=== PATIENT | female | born 1970 | race Caucasian/White ===

== ENCOUNTER 2017-03-14 20:17 | Emergency (ER) | payer MEDICAID, MEDICARE ==
--- NOTE | 2017-03-14 20:27 | EDM.PDOC ---
ED HPI GENERAL MEDICAL PROBLEM - General Stated Complaint: CHEST PAIN, SOB Time Seen by Provider: 03/14/17 20:27 Source of Information: Reports: Patient History Limitations: Reports: No Limitations - History of Present Illness INITIAL COMMENTS - FREE TEXT/NARRATIVE: 46 yo F who presents to the ER with Chest pain that has been ongoing for the past 2 months. Reports that Chest pain has been episodic with no obvious aggravating or relieving factore. Has occasionaL sob. No fever, chills, diaphoresis or Leg swelling. Presented to the ER at the insistence of her significant other Duration: Chronic - Related Data Allergies Allergy/AdvReac Type Severity Reaction Status Date / Time prednisone Allergy Other Verified 03/14/17 21:46 Home Meds: Home Meds clonazePAM [Clonazepam] 2 mg PO BID 09/12/15 [History] QUEtiapine Fumarate [Seroquel Xr] 300 mg PO DAILY 03/14/17 [History] Past Medical History Cardiovascular History: Reports: High Cholesterol, Hypertension, SOB on Exertion Musculoskeletal History: Reports: Back Pain, Chronic Psychiatric History: Reports: ADD, ADHD, Anxiety, Bipolar, Depression, Psych Hospitalization(s), Suicide Attempt Social & Family History - Tobacco Use Smoking Status *Q: Current Every Day Smoker Years of Tobacco use: 15 Packs/Tins Daily: 0.6 Second Hand Smoke Exposure: Yes - Recreational Drug Use Recreational Drug Use: No - Living Situation & Occupation Living situation: Reports: Other ED ROS GENERAL - Review of Systems Review Of Systems: See Below Constitutional: Reports: No Symptoms HEENT: Reports: No Symptoms Respiratory: Reports: No Symptoms Cardiovascular: Reports: Chest Pain Endocrine: Reports: No Symptoms GI/Abdominal: Reports: No Symptoms : Reports: No Symptoms Musculoskeletal: Reports: No Symptoms Skin: Reports: No Symptoms Neurological: Reports: No Symptoms Psychiatric: Reports: No Symptoms Hematologic/Lymphatic: Reports: No Symptoms Immunologic: Reports: No Symptoms ED EXAM, GENERAL - Physical Exam Exam: See Below Exam Limited By: No Limitations General Appearance: Alert, WD/WN Ears: Normal External Exam, Normal Canal, Normal TMs Nose: Normal Inspection, Normal Mucosa, No Blood Throat/Mouth: Normal Inspection, Normal Lips, Normal Teeth, Normal Oropharynx, Normal Voice Head: Atraumatic, Normocephalic Neck: Normal Inspection Respiratory/Chest: No Respiratory Distress, Lungs Clear Cardiovascular: Normal Peripheral Pulses, Regular Rate, Rhythm, No JVD, No Murmur GI/Abdominal: Normal Bowel Sounds, Non-Tender, No Distention, No Abnormal Bruit (Female) Exam: Deferred Rectal (Female) Exam: Deferred Back Exam: Normal Inspection, Full Range of Motion Extremities: Normal Inspection, Normal Range of Motion, Non-Tender Neurological: Alert, Oriented, CN II-XII Intact, Normal Cognition Psychiatric: Normal Affect, Normal Mood Skin Exam: Warm Lymphatic: No Adenopathy Course - Vital Signs Last Recorded V/S: Last Vital Signs Temp 36.6 C 03/14/17 20:20 Pulse 103 H 03/14/17 20:20 Resp 16 03/14/17 20:20 BP 131/88 03/14/17 20:20 Pulse Ox 98 03/14/17 20:20 - Orders/Labs/Meds Orders: Active Orders 24 hr Category Date Time Status CXR [Chest 2V] [CR] Stat Exams 03/14/17 20:42 Taken Sodium Chloride 0.9% [Normal Saline] 1,000 ml Med 03/14/17 20:45 Active IV ASDIRECTED Medication Orders Sodium Chloride (Normal Saline) 1,000 mls @ 100 mls/hr IV ASDIRECTED ANDREA Last Admin: 03/14/17 21:08 Dose: 100 mls/hr Labs: Laboratory Tests 03/14/17 03/14/17 03/14/17 Range/Units 20:55 20:55 20:55 WBC 12.6 H (4.5-12.0) X10-3/uL RBC 4.53 (3.23-5.20) x10(6)uL Hgb 13.7 (11.5-15.5) g/dL Hct 40.1 (30.0-51.3) % MCV 88.7 (80-96) fL MCH 30.2 (27.7-33.6) pg MCHC 34.0 (32.2-35.4) g/dL RDW 12.9 (11.5-15.5) % Plt Count 388 H (125-369) X10(3)uL MPV 7.7 (7.4-10.4) fL Neut % (Auto) 57.3 (46-82) % Lymph % (Auto) 32.5 (13-37) % [place] % (Auto) 6.5 (4-12) % Eos % (Auto) 2 (1.0-5.0) % Baso % (Auto) 2 (0-2) % Neut # (Auto) 7.2 (1.6-8.3) # Lymph # (Auto) 4.1 (0.6-5.0) # [place] # (Auto) 0.8 (0.0-1.3) # Eos # (Auto) 0.3 (0.0-0.8) # Baso # (Auto) 0.2 (0.0-0.2) # Sodium 131 L (135-145) mmol/L Potassium 3.8 (3.5-5.3) mmol/L Chloride 99 L D (100-110) mmol/L Carbon Dioxide 24 (23-29) mmol/L BUN 12 (5-20) mg/dL Creatinine 0.6 (0.6-1.3) mg/dL Est Cr Clr Drug Dosing TNP Estimated GFR (MDRD) > 60 (>60) BUN/Creatinine Ratio 20.0 (9-20) Glucose 104 (80-116) mg/dL Calcium 9.0 (8.6-10.2) mg/dL Total Bilirubin 0.4 (0.1-1.3) mg/dL AST 18 D (5-27) IU/L ALT 20 D (14-26) IU/L Alkaline Phosphatase 87 (56-112) IU/L Troponin I < 0.01 L (0.02-0.06) NG/ML Total Protein 7.6 (6.0-8.0) g/dL Albumin 3.4 L (3.5-5.2) g/dL Globulin 4.2 g/dL Albumin/Globulin Ratio 0.8 Meds: Medications Generic Name Dose Route Start Last Admin Trade Name Freq PRN Reason Stop Dose Admin Sodium Chloride 1,000 mls @ 100 mls/hr 03/14/17 20:45 03/14/17 21:08 Normal Saline IV 100 mls/hr ASDIRECTED ANDREA Administration Discontinued Medications Generic Name Dose Route Start Last Admin Trade Name Freq PRN Reason Stop Dose Admin Aspirin 324 mg 03/14/17 20:44 03/14/17 20:50 Aspirin PO 03/14/17 20:45 324 mg ONETIME ONE Administration Departure - Departure Time of Disposition: 00:00 Disposition: Home, Self-Care 01 Condition: Good Clinical Impression: Atypical chest pain - Discharge Information Instructions: Costochondritis, [id number], Nonspecific Chest Pain Referrals: PCP,None [Primary Care Provider] - Forms: ED Department Discharge Additional Instructions: Follow with PCP Return if symptoms worsen Call your Physician or Return to Emergency Department if: * Your condition worsens in any way. * You develop fever greater than 100.4. * You have vomitting that does not stop with medications. * You have pain that is not controlled with medications. - My Orders Last 24 Hours: My Active Orders 03/14/17 20:42 CXR [Chest 2V] [CR] Stat 03/14/17 20:45 Sodium Chloride 0.9% [Normal Saline] 1,000 ml IV ASDIRECTED - Assessment/Plan Last 24 Hours: My Active Orders 03/14/17 20:42 CXR [Chest 2V] [CR] Stat 03/14/17 20:45 Sodium Chloride 0.9% [Normal Saline] 1,000 ml IV ASDIRECTED
[2017-03-14] MEDS ORDERED: Aspirin 81 MG Tab.Chew PO ONE (20:44)
[2017-03-14] MEDS ORDERED: Sodium Chloride 0.9% 1,000 ML IV SCH (20:45)
[2017-03-14 22:11] VITALS: BP 131/88
--- NOTE | 2017-03-16 13:52 | CR ---
INDICATION: Chest pain. COMPARISON: None. PA AND LATERAL CHEST: Mild perihilar, bibasilar segmental atelectasis, and/or parenchymal scarring change with minimal volume loss. No cardiomegaly, interstitial edema, pneumothorax. Minimal left pleural effusion. Osseous elements otherwise unremarkable. IMPRESSION: 1. Mild perihilar, bibasilar segmental atelectasis, and/or parenchymal scarring change. 2. Minimal left pleural effusion. MTDD
== END 2017-03-14 23:50 | disposition home or self-care (01) ==
LOC: FB.ED 20:17
DX: R07.89 Other chest pain (principal); E78.00 Pure hypercholesterolemia, unspecified; I10 Essential (primary) hypertension; F31.9 Bipolar disorder, unspecified; F41.9 Anxiety disorder, unspecified; F17.210 Nicotine dependence, cigarettes, uncomplicated; Z79.899 Other long term (current) drug therapy
CPT/HCPCS: 36415; 71020; 80053; 84484; 85025; 96360; 96361; 99285; A9270; J7040; 99283

== ENCOUNTER 2017-12-28 17:47 | Emergency (ER) | payer MEDICARE ==
[2017-12-28] MEDS ORDERED: Aspirin 81 MG Tab.Chew PO ONE (17:57)
--- NOTE | 2017-12-28 18:01 | EDM.PDOC ---
ED HPI GENERAL MEDICAL PROBLEM - General Stated Complaint: CHEST PAIN Time Seen by Provider: 12/28/17 17:47 Source of Information: Reports: Patient, Family History Limitations: Reports: No Limitations - History of Present Illness INITIAL COMMENTS - FREE TEXT/NARRATIVE: 47 y.o.w.f came to the ed by PC due to acute SSCP while walking, Pain was rated 10/10, no N/V/D no dizziness, no diaphoresis. No other acute med issues, denies cardiac riskfactors. BP 159/88 pulse 77 RR 18 Pulse ox 100 Temp 36.8 Onset: Today Onset Date: 12/28/17 Onset Time: 17:00 Duration: Minutes:, Intermittent, Improving Location: Reports: Chest Quality: Reports: Ache, Burning Severity: Moderate Improves with: Reports: Rest Worsens with: Reports: Movement Context: Reports: Other Associated Symptoms: Reports: Chest Pain mid chest Pain Score (Numeric/FACES): 2 - Related Data Allergies Allergy/AdvReac Type Severity Reaction Status Date / Time prednisone Allergy Other Verified 12/28/17 18:02 Home Meds: Home Meds NK [No Known Home Meds] 12/28/17 [History] Past Medical History Cardiovascular History: Reports: High Cholesterol, Hypertension, SOB on Exertion [employer] History: Reports: Musculoskeletal History: Reports: Back Pain, Chronic Psychiatric History: Reports: ADD, ADHD, Anxiety, Bipolar, Depression, Psych Hospitalization(s), Suicide Attempt - Past Surgical History GI Surgical History: Reports: Cholecystectomy Social & Family History - Family History Family Medical History: Noncontributory - Tobacco Use Smoking Status *Q: Current Every Day Smoker Years of Tobacco use: 15 Packs/Tins Daily: 0.6 Second Hand Smoke Exposure: Yes - Caffeine Use Caffeine Use: Reports: Soda - Recreational Drug Use Recreational Drug Use: No - Living Situation & Occupation Living situation: Reports: Other ED ROS GENERAL - Review of Systems Review Of Systems: See Below Constitutional: Reports: No Symptoms HEENT: Reports: No Symptoms Respiratory: Reports: No Symptoms Cardiovascular: Reports: Chest Pain Endocrine: Reports: No Symptoms GI/Abdominal: Reports: No Symptoms : Reports: No Symptoms Musculoskeletal: Reports: No Symptoms Skin: Reports: No Symptoms Neurological: Reports: No Symptoms Psychiatric: Reports: No Symptoms Hematologic/Lymphatic: Reports: No Symptoms Immunologic: Reports: No Symptoms ED EXAM, GENERAL - Physical Exam Exam: See Below Exam Limited By: No Limitations General Appearance: Alert, WD/WN, Mild Distress Eye Exam: Bilateral Eye: Normal Inspection Ears: Normal External Exam Ear Exam: Bilateral Ear: Auricle Normal Nose: Normal Inspection Throat/Mouth: Normal Inspection Head: Atraumatic, Normocephalic Neck: Normal Inspection, Supple, Non-Tender, Full Range of Motion Respiratory/Chest: No Respiratory Distress, Lungs Clear, Normal Breath Sounds, No Accessory Muscle Use, Chest Non-Tender Cardiovascular: Normal Peripheral Pulses, Regular Rate, Rhythm, No Edema, No Gallop, No JVD, No Murmur Peripheral Pulses: 1+: Radial (L) GI/Abdominal: Normal Bowel Sounds, Soft, Non-Tender, No Organomegaly, No Distention (Female) Exam: Deferred Rectal (Female) Exam: Deferred Back Exam: Normal Inspection, Full Range of Motion Extremities: Normal Inspection, Normal Range of Motion, Non-Tender, No Pedal Edema, Normal Capillary Refill Neurological: Alert, Oriented, CN II-XII Intact, Normal Cognition, Normal Gait, No Motor/Sensory Deficits Psychiatric: Normal Affect, Normal Mood Skin Exam: Warm, Dry, Intact, Normal Color, No Rash Lymphatic: No Adenopathy EKG INTERPRETATION EKG Date: 12/28/17 Time: 17:55 Rhythm: NSR Rate (Beats/Min): 72 [place]: Normal P-Wave: Present QRS: Normal ST-T: Normal QT: Normal Comparison: NA - No Prior EKG Course - Vital Signs Text/Narrative:: 47 y.o.w.f came to the ed by PC due to acute SSCP while walking, Pain was rated 10/10, no N/V/D no dizziness, no diaphoresis. No other acute med issues, denies cardiac riskfactors. BP 159/88 pulse 77 RR 18 Pulse ox 100 Temp 36.8 PE;: WNWD W F came by PC to the ed due to mid upper ant chest pain, subsiding. Imaging: CXR NAD Labs: CBC nl K 3.0 Troponin 0.017 Impression: Hypokalemia, Atypicla chest pain Tx: Potassium, ASA. Reexam: Pain subsided 100% Plan: D/C with instructions Last Recorded V/S: Last Vital Signs Temp 36.4 C 12/28/17 19:07 Pulse 69 12/28/17 19:07 Resp 18 12/28/17 19:07 BP 137/96 H 12/28/17 19:07 Pulse Ox 99 12/28/17 19:07 - Orders/Labs/Meds Orders: Active Orders 24 hr Category Date Time Status EKG Documentation Completion [RC] ASDIRECTED Care 12/28/17 17:59 Active CXR [Chest 1V Frontal] [CR] Stat Exams 12/28/17 17:57 Taken EKG 12 Lead [EK] Routine Ther 12/28/17 17:57 Ordered Labs: Laboratory Tests 12/28/17 12/28/17 12/28/17 Range/Units 18:10 18:10 18:10 WBC 10.2 (4.5-12.0) X10-3/uL RBC 4.59 (3.23-5.20) x10(6)uL Hgb 13.8 (11.5-15.5) g/dL Hct 40.4 (30.0-51.3) % MCV 87.9 (80-96) fL MCH 30.0 (27.7-33.6) pg MCHC 34.1 (32.2-35.4) g/dL RDW 12.8 (11.5-15.5) % Plt Count 393 H (125-369) X10(3)uL MPV 8.8 (7.4-10.4) fL Neut % (Auto) 51.0 (46-82) % Lymph % (Auto) 39.4 H (13-37) % [place] % (Auto) 5.4 (4-12) % Eos % (Auto) 2 (1.0-5.0) % Baso % (Auto) 2 (0-2) % Neut # (Auto) 5.2 (1.6-8.3) # Lymph # (Auto) 4.0 (0.6-5.0) # [place] # (Auto) 0.6 (0.0-1.3) # Eos # (Auto) 0.2 (0.0-0.8) # Baso # (Auto) 0.2 (0.0-0.2) # PT 10.2 (8.7-11.1) INR 1.01 (0.89-1.13) D-Dimer, Quantitative (100-400) ng/mL Sodium 140 (135-145) mmol/L Potassium 3.0 L (3.5-5.3) mmol/L Chloride 104 (100-110) mmol/L Carbon Dioxide 25 (21-32) mmol/L BUN 6 L (7-18) mg/dL Creatinine 0.8 (0.55-1.02) mg/dL Est Cr Clr Drug Dosing TNP Estimated GFR (MDRD) > 60 (>60) BUN/Creatinine Ratio 7.5 L (9-20) Glucose 97 (80-116) mg/dL Calcium 9.0 (8.6-10.2) mg/dL Troponin I (<0.017-0.056) ng/mL 12/28/17 12/28/17 Range/Units 18:10 18:10 WBC (4.5-12.0) X10-3/uL RBC (3.23-5.20) x10(6)uL Hgb (11.5-15.5) g/dL Hct (30.0-51.3) % MCV (80-96) fL MCH (27.7-33.6) pg MCHC (32.2-35.4) g/dL RDW (11.5-15.5) % Plt Count (125-369) X10(3)uL MPV (7.4-10.4) fL Neut % (Auto) (46-82) % Lymph % (Auto) (13-37) % [place] % (Auto) (4-12) % Eos % (Auto) (1.0-5.0) % Baso % (Auto) (0-2) % Neut # (Auto) (1.6-8.3) # Lymph # (Auto) (0.6-5.0) # [place] # (Auto) (0.0-1.3) # Eos # (Auto) (0.0-0.8) # Baso # (Auto) (0.0-0.2) # PT (8.7-11.1) INR (0.89-1.13) D-Dimer, Quantitative < 100 L (100-400) ng/mL Sodium (135-145) mmol/L Potassium (3.5-5.3) mmol/L Chloride (100-110) mmol/L Carbon Dioxide (21-32) mmol/L BUN (7-18) mg/dL Creatinine (0.55-1.02) mg/dL Est Cr Clr Drug Dosing Estimated GFR (MDRD) (>60) BUN/Creatinine Ratio (9-20) Glucose (80-116) mg/dL Calcium (8.6-10.2) mg/dL Troponin I < 0.017 L (<0.017-0.056) ng/mL Meds: Medications Discontinued Medications Generic Name Dose Route Start Last Admin Trade Name Rosa Maria PRN Reason Stop Dose Admin Aspirin 324 mg 12/28/17 17:57 12/28/17 18:16 Aspirin PO 12/28/17 17:58 324 mg ONETIME ONE Administration Potassium Chloride 40 meq 12/28/17 19:10 12/28/17 19:22 Klor-Con M20 PO 12/28/17 19:11 40 meq ONETIME ONE Administration Potassium Chloride 40 meq 12/28/17 19:13 Klor-Con M20 PO 12/28/17 19:14 ONETIME ONE Departure - Departure Time of Disposition: 18:59 Disposition: Home, Self-Care 01 Condition: Good (atypical ) Clinical Impression: Atypical chest pain, Hypokalemia Instructions: Nonspecific Chest Pain, [id number] Referrals: PCP,None [Primary Care Provider] - Forms: ED Department Discharge Additional Instructions: Please follow up with your doctor, please come back if your symptom come back. Care Plan Goals: Please take potassium 40 MQ at 11 pm tonight. Please follow with your PMD, please check your potasium in 3 days, please come back if your symptoms get worse acutely - My Orders Last 24 Hours: My Active Orders 12/28/17 17:57 CXR [Chest 1V Frontal] [CR] Stat EKG 12 Lead [EK] Routine 12/28/17 17:59 EKG Documentation Completion [RC] ASDIRECTED - Assessment/Plan Last 24 Hours: My Active Orders 12/28/17 17:57 CXR [Chest 1V Frontal] [CR] Stat EKG 12 Lead [EK] Routine 12/28/17 17:59 EKG Documentation Completion [RC] ASDIRECTED
[2017-12-28 19:07] VITALS: BP 137/96
[2017-12-28] MEDS ORDERED: Potassium Chloride 20 MEQ Tab.ER PO ONE ×2 (19:10→19:13)
--- NOTE | 2017-12-29 11:52 | CR ---
INDICATION: Chest pain. CHEST: AP upright portable view of the chest, 12/28/2017, was compared with , revealing overlying EKG leads. The heart is likely normal in size, emphasized by the AP positioning. Minimal calcification is suggested in the arch of the aorta, but is not definite. A definite active infiltrate or effusion was not identified. IMPRESSION: No acute process. MTDD
== END 2017-12-28 19:30 | disposition home or self-care (01) ==
LOC: FB.ED 17:47
DX: R07.89 Other chest pain (principal); E87.6 Hypokalemia; F17.210 Nicotine dependence, cigarettes, uncomplicated; I10 Essential (primary) hypertension; E78.00 Pure hypercholesterolemia, unspecified; Z88.8 Allergy status to other drugs, medicaments and biological substances
CPT/HCPCS: 36415; 71045; 80048; 84484; 85025; 85379; 85610; 93005; 99285; A9270

== ENCOUNTER 2018-01-31 17:25 | Emergency (ER) | payer MEDICARE, MEDICAID ==
[2018-01-31 18:45] VITALS: BP 129/77
--- NOTE | 2018-02-01 12:19 | ER ---
DATE SEEN: 01/31/2018 TIME SEEN: The patient was seen at 1804 hours. HISTORY OF PRESENT ILLNESS: Right ingrown toenail history with increasing pain with walking. She acknowledges she has cut her toenails at their corners and rounded them. She denies fever, cough, sore throat, respiratory symptoms, toe injury, or trauma. 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 ALLERGIES: Prednisone and naproxen. PHYSICAL EXAMINATION: VITAL SIGNS: Blood pressure 135/80, heart rate 87 and sinus, respirations 16, oxygen saturation 99%, 79.3 kg. EXTREMITIES: Examination of right lateral toe demonstrates hallux incarnatus - ingrown toenail on the right. It has a rounded edge. Mild erythema at the lateral portion of the toe, approximately 50% of the corner of the toe. Moderate tenderness to pressure. I did not do any cutting or trimming, but I chose to remove this exophytic hypertrophic skin that is piled up at this point of the incarnatus granuloma that has been established from constant irritation. This then had small amount of bleeding, that is treated with silver nitrate. 50% of this large exophytic mass was removed. Ideally should the whole mass should be removed. However, the patient chose to not do this presently and would like to be treated conservatively with a trial of silver nitrate applications intermittently after successive paring off this hypertrophic dermis. She plans to cut her toenails horizontally and will not be cutting her hallux toenails for 2 months except for angel other toe nails. ASSESSMENT: Incarnatus unguis. The patient was given a prescription of Keflex 500 mg t.i.d., 21 tablets (7 days). Follow up with doctor as needed in the next 7 to 14 days. /[id number] AMA/VANNESSA ORTIZ
== END 2018-01-31 18:44 | disposition home or self-care (01) ==
LOC: FB.ED 17:25
DX: L60.0 Ingrowing nail (principal)
CPT/HCPCS: 99283

== ENCOUNTER 2018-03-03 12:48 | Emergency (ER) | payer MEDICARE, MEDICAID ==
[2018-03-03] MEDS ORDERED: Ondansetron 4 MG/2 ML SDV IVPUSH ONE (13:16)
[2018-03-03] MEDS ORDERED: Sodium Chloride 0.9% 1,000 ML IV SCH (13:30)
--- NOTE | 2018-03-03 15:26 | ER ---
DATE SEEN: 03/03/2018 REASON FOR VISIT: Headache. HISTORY OF PRESENT ILLNESS: This is a 47-year-old with headache, pain behind the eyes, nausea, vomiting, and just feeling unwell. These symptoms started this morning. She denies fever. PAST MEDICAL HISTORY: She is healthy without any active medical problems. She is, however, currently on treatment for a toe infection with Bactrim. ALLERGIES: Naproxen and prednisone. REVIEW OF SYSTEMS: Denies any chest pain or shortness of breath. PHYSICAL EXAMINATION: GENERAL: Mildly toxic in appearance. VITAL SIGNS: Temperature 97.5, pulse is 80. EARS, NOSE, AND THROAT: Negative. EYES: Pupils are equal, react to light. NECK: Supple. CARDIOVASCULAR: Normal. RESPIRATIONS: Clear. LABORATORY DATA: White cell count 17,000. Electrolytes are normal with the exception of BUN of 20. EKG and CT of the head were all unremarkable. IMPRESSION: Fatigue and dehydration. PLAN: Treatment, supportive, fluids, rest. I gave her 1 L of normal saline, Zofran, and discharged home for followup in 24 to 48 hours. /[id number] HUMERA/MARIANAL
[2018-03-03 17:31] VITALS: BP 130/70
== END 2018-03-03 14:48 | disposition home or self-care (01) ==
LOC: FB.ED 12:48
DX: E86.0 Dehydration (principal); R53.83 Other fatigue; Z88.8 Allergy status to other drugs, medicaments and biological substances
CPT/HCPCS: 36415; 70450; 80048; 82550; 84484; 85025; 93005; 96361; 96374; 99284; J2405; J7030

== ENCOUNTER 2020-01-28 14:57 | Emergency (ER) | payer MEDICAID, MEDICARE, OTHER ==
--- NOTE | 2020-01-28 15:13 | EDM.PDOC ---
ED HPI GENERAL MEDICAL PROBLEM - General Stated Complaint: CHEST PAIN Time Seen by Provider: 01/28/20 15:08 Source of Information: Reports: Patient History Limitations: Reports: No Limitations - History of Present Illness INITIAL COMMENTS - FREE TEXT/NARRATIVE: 49-year-old female who reports at approximately 11 AM today she developed upper quadrant abdominal pain and it seemed to radiate through to her back. It was a sharp type pain, "like somebody was stepping on me". She had just moved from furniture and also she reports that at approximately 10 AM today she smoked some methamphetamine. She reports that it was the first time she had done this. She states that she laid down and the pain seemed to go away and she reports that she went to sleep and awoke at 2 PM with recurrence of the pain and it has increased to a 10/10 and is of the pain quality with radiation through to her back. She has had no nausea or vomiting with this pain. The pain is worse with palpation and with deep breath. No chest pain associated with this. No cough. No shortness of breath. No nasal congestion. No sore throat. No trouble swallowing. She states that she felt completely well prior to this occurring and she has not had pain like this in the past. There are no other associated signs or symptoms. There are no other modifying factors. Onset: Today (11 AM) Duration: Getting Worse Location: Reports: Abdomen, Back Quality: Reports: Sharp Severity: Severe Improves with: Reports: Rest Worsens with: Reports: Breathing, Other (Palpation) Context: Reports: Other (As above) Associated Symptoms: Reports: No Other Symptoms Treatments [employer]LECT[employer]ICAL [employer]STRUMENTATION [employer]PERVISOR: Reports: Other (see below) (Nothing) Epigastric region radiating into lower back Pain Score (Numeric/FACES): 10 - Related Data Allergies Allergy/AdvReac Type Severity Reaction Status Date / Time prednisone Allergy Other Verified 03/03/18 13:09 trazodone Allergy Cannot Verified 01/28/20 17:41 Remember naproxeb Allergy Other Uncoded 03/03/18 13:09 Home Meds: Home Meds NK [No Known Home Meds] 01/28/20 [History] Past Medical History Cardiovascular History: Reports: High Cholesterol, Hypertension, Other (See Below) (Peripheral vascular disease) Musculoskeletal History: Reports: Back Pain, Chronic Psychiatric History: Reports: ADD, ADHD, Anxiety, Bipolar, Depression, Psych Hospitalization(s), Suicide Attempt - Past Surgical History Cardiovascular Surgical History: Reports: Percutaneous Transluminal Angioplasty (Of her left lower extremity 3.) GI Surgical History: Reports: Cholecystectomy Female Surgical History: Reports: Hysterectomy Musculoskeletal Surgical History: Reports: Carpal Tunnel (Bilateral) Social & Family History - Tobacco Use Smoking Status *Q: Current Every Day Smoker - Caffeine Use Caffeine Use: Reports: Soda - Alcohol Use Alcohol Use History: Yes Alcohol Use Frequency: Rarely - Recreational Drug Use Recreational Drug Use: Yes Recreational Drug Type: Reports: Methamphetamine (Used at 10 AM today, smoked.) ED ROS GENERAL - Review of Systems Review Of Systems: See Below Constitutional: Reports: No Symptoms HEENT: Reports: No Symptoms Respiratory: Reports: No Symptoms Cardiovascular: Reports: No Symptoms GI/Abdominal: Reports: Abdominal Pain, Other (Normal bowel movements). Denies: Nausea, Vomiting : Reports: No Symptoms Musculoskeletal: Reports: Back Pain Skin: Reports: No Symptoms Neurological: Reports: No Symptoms Psychiatric: Reports: Anxiety Hematologic/Lymphatic: Reports: No Symptoms (She has been on Plavix in the past after the left lower extremity angioplasty but is no longer on Plavix.) Immunologic: Reports: No Symptoms ED EXAM, GENERAL - Physical Exam Exam: See Below Exam Limited By: No Limitations General Appearance: Alert, WD/WN, Moderate Distress Eye Exam: Bilateral Eye: EOMI, Normal Inspection (Sclera are anicteric), PERRL Ears: Normal External Exam, Hearing Grossly Normal Ear Exam: Bilateral Ear: Auricle Normal Nose: Normal Inspection, Normal Mucosa, No Blood Throat/Mouth: Normal Inspection, Normal Oropharynx, Normal Voice, No Airway Compromise Head: Atraumatic, Normocephalic Neck: Normal Inspection, Supple, Non-Tender, Full Range of Motion Respiratory/Chest: No Respiratory Distress, Lungs Clear, Normal Breath Sounds, No Accessory Muscle Use, Chest Non-Tender Cardiovascular: Normal Peripheral Pulses, Regular Rate, Rhythm, No Murmur Peripheral Pulses: 2+: Radial (L), Radial (R), Dorsalis Pedis (L), Dorsalis Pedis (R) GI/Abdominal: Normal Bowel Sounds, Soft, No Mass, Guarding, Tender (in entire upper abdomen), Other (Nontender elsewhere in the abdomen.) Back Exam: Normal Inspection, Full Range of Motion. No: CVA Tenderness (R), CVA Tenderness (L) Extremities: Normal Inspection, Normal Range of Motion, Non-Tender, No Pedal Edema, Normal Capillary Refill Neurological: Alert, Oriented, CN II-XII Intact, Normal Cognition, No Motor/ Sensory Deficits Psychiatric: Anxious Skin Exam: Warm, Dry, Intact, Normal Color, No Rash EKG INTERPRETATION EKG Date: 01/28/20 Time: 15:05 Rhythm: NSR Rate (Beats/Min): 82 [place]: Normal P-Wave: Present QRS: Normal ST-T: Normal QT: Prolonged (Slightly prolonged QTc.) Comparison: Other: (Slightly prolonged QTC is new from an EKG that was performed on 03/03/2018. Really no change from that EKG.) Course - Vital Signs Last Recorded V/S: Last Vital Signs Temp 35.8 C L 01/28/20 18:30 Pulse 76 01/28/20 19:00 Resp 21 H 01/28/20 19:00 BP 157/89 H 01/28/20 19:00 Pulse Ox 99 01/28/20 19:00 - Orders/Labs/Meds Orders: Active Orders 24 hr Category Date Time Status EKG Documentation Completion [RC] ASDIRECTED Care 01/28/20 15:25 Active Abdomen Pelvis w Cont [CT] Stat Exams 01/28/20 16:26 Taken Chest 1V Frontal [CR] Stat Exams 01/28/20 15:23 Taken Heparin Sodium/0.45% NaCl [Heparin 25,000 Units in 1/2 Med 01/28/20 18:15 Active NS 500 ML] 500 ml IV ASDIRECTED Sodium Chloride 0.9% [Normal Saline] 1,000 ml Med 01/28/20 15:30 Active IV ASDIRECTED Sodium Chloride 0.9% [Normal Saline] 1,000 ml Med 01/28/20 18:45 Active IV ASDIRECTED Sodium Chloride 0.9% [Saline Flush] Med 01/28/20 15:23 Active 10 ml FLUSH ASDIRECTED PRN Peripheral IV Insertion Adult [OM.PC] Routine Oth 01/28/20 15:23 Ordered EKG 12 Lead [EK] Routine Ther 01/28/20 15:23 Ordered Medication Orders Sodium Chloride (Normal Saline) 1,000 mls @ 999 mls/hr IV ASDIRECTED ANDREA Last Admin: 01/28/20 15:30 Dose: 999 mls/hr Heparin Sodium/Sodium Chloride (Heparin 25,000 Units In 1/2 Ns 500 Ml) 500 mls @ 24 mls/hr IV ASDIRECTED ANDREA Last Admin: 01/28/20 18:27 Dose: 24 mls/hr Sodium Chloride (Normal Saline) 1,000 mls @ 125 mls/hr IV ASDIRECTED ANDREA Last Admin: 01/28/20 20:00 Dose: 125 mls/hr Sodium Chloride (Saline Flush) 10 ml FLUSH ASDIRECTED PRN PRN Reason: Keep Vein Open Labs: Laboratory Tests 01/28/20 01/28/20 01/28/20 Range/Units 15:10 15:10 15:10 WBC 12.4 H (4.5-12.0) X10-3/uL RBC 4.97 (3.23-5.20) x10(6)uL Hgb 14.3 (11.5-15.5) g/dL Hct 43.6 (30.0-51.3) % MCV 87.7 (80-96) fL MCH 28.7 (27.7-33.6) pg MCHC 32.7 (32.2-35.4) g/dL RDW 13.1 (11.5-15.5) % Plt Count 408 H (125-369) X10(3)uL MPV 8.1 (7.4-10.4) fL Neut % (Auto) 74.1 (46-82) % Lymph % (Auto) 19.2 (13-37) % Morgan % (Auto) 4.2 (4-12) % Eos % (Auto) 1 (1.0-5.0) % Baso % (Auto) 2 (0-2) % Neut # (Auto) 9.2 H (1.6-8.3) # Lymph # (Auto) 2.4 (0.6-5.0) # Morgan # (Auto) 0.5 (0.0-1.3) # Eos # (Auto) 0.1 (0.0-0.8) # Baso # (Auto) 0.2 (0.0-0.2) # PT (9.0-11.1) sec INR (1.00-1.24) APTT (24.4-33.2) SECONDS Sodium 140 (135-145) mmol/L Potassium 3.7 (3.5-5.3) mmol/L Chloride 104 (100-110) mmol/L Carbon Dioxide 27 (21-32) mmol/L BUN 12 (7-18) mg/dL Creatinine 0.9 (0.55-1.02) mg/dL Est Cr Clr Drug Dosing TNP Estimated GFR (MDRD) > 60 (>60) BUN/Creatinine Ratio 13.3 (9-20) Glucose 107 (80-116) mg/dL Calcium 9.4 (8.6-10.2) mg/dL Magnesium 1.9 (1.8-2.5) mg/dL Total Bilirubin 0.4 (0.1-1.3) mg/dL AST 13 (5-25) IU/L ALT 21 (12-36) U/L Alkaline Phosphatase 90 (56-112) IU/L Troponin I 5.2 (4.0-60.3) pg/mL Total Protein 7.8 (6.0-8.0) g/dL Albumin 4.0 (3.5-5.2) g/dL Globulin 3.8 g/dL Albumin/Globulin Ratio 1.1 Lipase 89 (73-393) U/L Urine Opiates Screen (NEGATIVE) Ur Oxycodone Screen (NEGATIVE) Ur Propoxyphene Screen (NEGATIVE) Ur Barbituates Screen (NEGATIVE) Ur Tricyclics Screen (NEGATIVE) Ur Phencyclidine Scrn (NEGATIVE) Ur Amphetamine Screen (NEGATIVE) Urine MDMA Screen (NEGATIVE) U Benzodiazepines Scrn (NEGATIVE) U Cocaine Metab Screen (NEGATIVE) U Marijuana (THC) Screen (NEGATIVE) 01/28/20 01/28/20 Range/Units 15:10 18:15 WBC (4.5-12.0) X10-3/uL RBC (3.23-5.20) x10(6)uL Hgb (11.5-15.5) g/dL Hct (30.0-51.3) % MCV (80-96) fL MCH (27.7-33.6) pg MCHC (32.2-35.4) g/dL RDW (11.5-15.5) % Plt Count (125-369) X10(3)uL MPV (7.4-10.4) fL Neut % (Auto) (46-82) % Lymph % (Auto) (13-37) % Morgan % (Auto) (4-12) % Eos % (Auto) (1.0-5.0) % Baso % (Auto) (0-2) % Neut # (Auto) (1.6-8.3) # Lymph # (Auto) (0.6-5.0) # Morgan # (Auto) (0.0-1.3) # Eos # (Auto) (0.0-0.8) # Baso # (Auto) (0.0-0.2) # PT 10.5 (9.0-11.1) sec INR 0.97 L (1.00-1.24) APTT 24.9 (24.4-33.2) SECONDS Sodium (135-145) mmol/L Potassium (3.5-5.3) mmol/L Chloride (100-110) mmol/L Carbon Dioxide (21-32) mmol/L BUN (7-18) mg/dL Creatinine (0.55-1.02) mg/dL Est Cr Clr Drug Dosing Estimated GFR (MDRD) (>60) BUN/Creatinine Ratio (9-20) Glucose (80-116) mg/dL Calcium (8.6-10.2) mg/dL Magnesium (1.8-2.5) mg/dL Total Bilirubin (0.1-1.3) mg/dL AST (5-25) IU/L ALT (12-36) U/L Alkaline Phosphatase (56-112) IU/L Troponin I (4.0-60.3) pg/mL Total Protein (6.0-8.0) g/dL Albumin (3.5-5.2) g/dL Globulin g/dL Albumin/Globulin Ratio Lipase (73-393) U/L Urine Opiates Screen Positive H (NEGATIVE) Ur Oxycodone Screen Negative (NEGATIVE) Ur Propoxyphene Screen Negative (NEGATIVE) Ur Barbituates Screen Negative (NEGATIVE) Ur Tricyclics Screen Negative (NEGATIVE) Ur Phencyclidine Scrn Negative (NEGATIVE) Ur Amphetamine Screen Positive H (NEGATIVE) Urine MDMA Screen Positive H (NEGATIVE) U Benzodiazepines Scrn Negative (NEGATIVE) U Cocaine Metab Screen Negative (NEGATIVE) U Marijuana (THC) Screen Negative (NEGATIVE) Meds: Medications Generic Name Dose Route Start Last Admin Trade Name Freq PRN Reason Stop Dose Admin Sodium Chloride 1,000 mls @ 999 mls/hr 01/28/20 15:30 01/28/20 15:30 Normal Saline IV 999 mls/hr ASDIRECTED ANDREA Administration Heparin Sodium/Sodium Chloride 500 mls @ 24 mls/hr 01/28/20 18:15 01/28/20 18 :27 Heparin 25,000 Units In 1/2 Ns 500 Ml IV 24 mls/hr ASDIRECTED ANDREA Administration Sodium Chloride 1,000 mls @ 125 mls/hr 01/28/20 18:45 01/28/20 20:00 Normal Saline IV 125 mls/hr ASDIRECTED ANDREA Administration Sodium Chloride 10 ml 01/28/20 15:23 Saline Flush FLUSH ASDIRECTED PRN Keep Vein Open Discontinued Medications Generic Name Dose Route Start Last Admin Trade Name Brennenq PRN Reason Stop Dose Admin Heparin Sodium (Porcine) 5,000 units 01/28/20 18:06 01/28/20 18:20 Heparin Sodium IVPUSH 01/28/20 18:07 5,000 units ONETIME ONE Administration Iopamidol 100 ml 01/28/20 16:35 01/28/20 16:47 Isovue-370 (76%) IV 01/28/20 16:36 73 ml . DIRECTED ONE Administration Lorazepam 1 mg 01/28/20 18:02 01/28/20 18:10 Ativan IVPUSH 01/28/20 18:03 1 mg ONETIME ONE Administration Morphine Sulfate 4 mg 01/28/20 15:25 01/28/20 15:48 Morphine IVPUSH 01/28/20 15:26 4 mg ONETIME ONE Administration Ondansetron HCl 4 mg 01/28/20 15:25 01/28/20 15:46 Zofran IVPUSH 01/28/20 15:26 4 mg ONETIME ONE Administration - Radiology Interpretation Free Text/Narrative:: Portable chest x-ray showed no acute disease and there was no free air under diaphragm. - Re-Assessments/Exams Free Text/Narrative Re-Assessment/Exam: 01/28/20 16:15: The patient's pain is much improved. It is down to a 4/10. She has remained hemodynamically stable with a decrease in her blood pressure to more normal level. Her O2 saturations have remained 99%. Her abdomen is abrading machine tender with palpation and more so in her epigastrium and left upper quadrant. I will send the patient for CT of her abdomen and pelvis with IV contrast. 01/28/20 17:25: The CT scan of the patient's abdomen and pelvis showed evidence of splenic infarcts. There were no other abnormalities present. Eldest didn't feel that this was likely the source of the patient's pain and I would agree. The patient need anticoagulation and admission. I will discuss the patient's case with Dr. Bonner initially. 01/28/20 17:30: Scuffs patient's case with her Ha and he felt that the patient would need transfer to a higher level of care hospital for services which are not available at [facility] (interventional radiology and potentially vascular surgery and cardiology as well. 01/28/20 17:35: I discussed the CT findings with the patient. I have given her the recommendations and the need for admission and transfer to a facility with a higher level of care. She has requested that I discuss her case with the doctors at [facility] in [place]. 01/28/20 17:45: I discussed patient's case with Dr. Isabel, hospitalist at [facility] in [place], and he has agreed to accept the patient in transfer. He recommends that the patient be anticoagulated with IV heparin and VTE dosing. 01/28/20 18:00: Arrangements were being made to then for the patient heparin via bolus and drip and she was wanting to be transferred via private vehicle. I explained to her why this was not an eighth option and why she would need transfer via ambulance (continued cardiac and hemodynamic monitoring, IV heparin drip). She was very reluctant to do this and seemed very anxious and even somewhat agitated. I explained the risk and the benefits and explained her that if she were to her by private vehicle that she would be doing so against my advice. She did, eventually, consent to transport but did request something for anxiety. I will give her Ativan 1 mg IV. We will continue with the patient and placed the patient on a heparin drip. The patient will be transferred via ambulance to [facility] in [place] for direct admission. 01/28/20 19:05: Patient is resting comfortably after the Ativan 1 mg. She has remained hemodynamically stable. She is currently on a heparin drip. We are awaiting transport of patient. We are awaiting confirmation from the accepting facility that a bed is available we will call ambulance for transport. We will continue monitoring for now. It should be noted that her urine tox screen was positive for methamphetamines and MDMA. It was also positive for opiates but we gave her morphine IV. Departure - Departure Time of Disposition: 20:28 Disposition: DC/Tfer to [facility] 02 Reason for Transfer *Q: Other (Pt needs radiology and potentially cardiology and vascular surgery services not available at [facility].) Condition: Fair (guarded) Clinical Impression: Splenic infarct, Polysubstance abuse Abdominal pain Qualifiers: Abdominal location: epigastric Qualified Code(s): R10.13 - Epigastric pain Referrals: Gema Gibson PA [Primary Care Provider] - Sepsis Event Note - Focused Exam Vital Signs: Vital Signs Temp Pulse Resp BP Pulse Ox 01/28/20 19:00 76 21 H 157/89 H 99 01/28/20 18:30 35.8 C L 89 21 H 143/92 H 98 01/28/20 18:00 88 19 116/94 H 100 01/28/20 17:30 74 21 H 147/74 H 98 01/28/20 17:00 76 23 H 143/76 H 97 01/28/20 16:15 79 22 H 150/96 H 99 01/28/20 15:45 88 22 H 124/108 H 100 01/28/20 15:15 92 22 H 122/107 H 99 01/28/20 14:57 36.4 C 92 28 H 149/118 H 99 Date Exam was Performed: 01/28/20 Time Exam was Performed: 20:44 - My Orders Last 24 Hours: My Active Orders 01/28/20 15:23 Chest 1V Frontal [CR] Stat Sodium Chloride 0.9% [Saline Flush] 10 ml FLUSH ASDIRECTED PRN Peripheral IV Insertion Adult [OM.PC] Routine EKG 12 Lead [EK] Routine 01/28/20 15:25 EKG Documentation Completion [RC] ASDIRECTED 01/28/20 15:30 Sodium Chloride 0.9% [Normal Saline] 1,000 ml IV ASDIRECTED 01/28/20 16:26 Abdomen Pelvis w Cont [CT] Stat 01/28/20 18:15 Heparin Sodium/0.45% NaCl [Heparin 25,000 Units in 1/2 NS 500 ML] 500 ml IV ASDIRECTED 01/28/20 18:45 Sodium Chloride 0.9% [Normal Saline] 1,000 ml IV ASDIRECTED - Assessment/Plan Last 24 Hours: My Active Orders 01/28/20 15:23 Chest 1V Frontal [CR] Stat Sodium Chloride 0.9% [Saline Flush] 10 ml FLUSH ASDIRECTED PRN Peripheral IV Insertion Adult [OM.PC] Routine EKG 12 Lead [EK] Routine 01/28/20 15:25 EKG Documentation Completion [RC] ASDIRECTED 01/28/20 15:30 Sodium Chloride 0.9% [Normal Saline] 1,000 ml IV ASDIRECTED 01/28/20 16:26 Abdomen Pelvis w Cont [CT] Stat 01/28/20 18:15 Heparin Sodium/0.45% NaCl [Heparin 25,000 Units in 1/2 NS 500 ML] 500 ml IV ASDIRECTED 01/28/20 18:45 Sodium Chloride 0.9% [Normal Saline] 1,000 ml IV ASDIRECTED
[2020-01-28] MEDS ORDERED: Sodium Chloride 0.9% 10 ML Syringe FLUSH PRN (15:23)
[2020-01-28] MEDS ORDERED: Morphine 2 MG/ML SYRINGE IVPUSH ONE (15:25)
[2020-01-28] MEDS ORDERED: Ondansetron 4 MG/2 ML SDV IVPUSH ONE (15:25)
[2020-01-28] MEDS ORDERED: Sodium Chloride 0.9% 1,000 ML IV SCH ×2 (15:30→18:45)
[2020-01-28] MEDS ORDERED: Iopamidol 755 Mg/ML 100 ML Bottle IV ONE (16:35)
[2020-01-28] MEDS ORDERED: LORazepam 2 MG/ML SDV IVPUSH ONE (18:02)
[2020-01-28] MEDS ORDERED: Heparin Sodium 5,000 Units/ML Vial IVPUSH ONE (18:06)
[2020-01-28] MEDS ORDERED: Heparin Sodium/0.45% NaCl 500 ML IV SCH (18:15)
[2020-01-28 19:04] VITALS: BP 157/89; PULSE 76
== END 2020-01-28 20:28 ==
LOC: FB.ED 14:57
DX: D73.5 Infarction of spleen (principal); F19.10 Other psychoactive substance abuse, uncomplicated; F17.200 Nicotine dependence, unspecified, uncomplicated; I10 Essential (primary) hypertension; Z88.8 Allergy status to other drugs, medicaments and biological substances
CPT/HCPCS: 36415; 71045; 74177; 80053; 80305; 83690; 83735; 84484; 85025; 85610; 85730; 93005; 93010; 96361; 96365; 96366; 96375; 99285; J1644; J2060; J2270; J2405; J7030; Q9967

== ENCOUNTER 2023-02-21 19:23 | Emergency (ER) | payer MEDICARE, MEDICAID ==
[2023-02-21] MEDS ORDERED: HYDROmorphone 2 MG/ML SDV IVPUSH ONE (20:11)
[2023-02-21] MEDS ORDERED: Naloxone 0.4 MG/ML SDV IVPUSH PRN (20:11)
[2023-02-21 21:43] LABS: HEMATOCRIT 40.2 % (34.2-48.2); HEMOGLOBIN 13.5 g/dL (11.4-15.5); MEAN CORPUSCULAR HEMOGLOBIN 29.8 pg (23.9-33.9); MEAN CORPUSCULAR HGB CONC 33.6 g/dL (31.9-34.8); MEAN CORPUSCULAR VOLUME 88.7 fL (76.7-100.5); MEAN PLATELET VOLUME 7.9 fL (7.1-12.4); PLATELET COUNT,PLT 354 x10(3)uL (151-488); RED BLOOD CELL COUNT 4.53 x10(6)uL (3.60-5.20); RED CELL DISTRIBUTION WIDTH 13.6 % (12.3-16.5); WHITE BLOOD CELL COUNT,WBC 13.6 x10-3/uL (3.0-10.3)
[2023-02-21 21:45] LABS: BLOOD UREA NITROGEN,BUN 13 mg/dL (7-18); BUN/CREATININE RATIO 18.6 (9-20); CALCIUM 9.6 mg/dL (8.6-10.2); CARBON DIOXIDE,CO2 31 mmol/L (21-32); CHLORIDE,CL 102 mmol/L (100-110); CREATININE 0.7 mg/dL (0.55-1.02); ESTIMATED GFR 104 mL/min (>60); GLUCOSE RANDOM 112 mg/dL (80-116); POTASSIUM,K 4.2 mmol/L (3.5-5.3); SODIUM,NA 139 mmol/L (135-145)
[2023-02-21] MEDS ORDERED: Labetalol 100 MG in Sodium Chloride 0.9% 80 ML IV SCH (21:45)
[2023-02-21 21:54] LABS: SEG NEUTROPHILS PERCENT MAN 86 % (46-82)
[2023-02-21 21:55] LABS: LYMPHOCYTES PERCENT MAN 9 % (13-37); MONOCYTES PERCENT MAN 5 % (4-12)
[2023-02-22 03:13] VITALS: BP 147/71; PULSE 72
== END 2023-02-21 22:45 ==
LOC: FB.ED 19:23
DX: I60.9 Nontraumatic subarachnoid hemorrhage, unspecified (principal); I10 Essential (primary) hypertension; Z88.8 Allergy status to other drugs, medicaments and biological substances; Z88.6 Allergy status to analgesic agent
CPT/HCPCS: 36415; 70450; 72125; 80048; 85025; 96365; 96375; 99285; J1170; J3490

== ENCOUNTER 2025-04-21 18:52 | Emergency (ER) | payer MEDICARE, MEDICAID ==
[2025-04-21] MEDS ORDERED: Acetaminophen/HYDROcodone 325-5 MG Tab PO ONE (18:53)
[2025-04-21 19:07] VITALS: BP 151/91; PULSE 126
[2025-04-21] MEDS: HYDROmorphone 2 MG/ML SDV IM ONE (19:21)
== END 2025-04-21 19:52 | disposition home or self-care (01) ==
LOC: FB.ED 18:52
DX: S52.571A Other intraarticular fracture of lower end of right radius, initial encounter for closed fracture (principal); I10 Essential (primary) hypertension; E78.00 Pure hypercholesterolemia, unspecified; K21.9 Gastro-esophageal reflux disease without esophagitis; F17.210 Nicotine dependence, cigarettes, uncomplicated; Z90.710 Acquired absence of both cervix and uterus; Z79.899 Other long term (current) drug therapy; Z88.8 Allergy status to other drugs, medicaments and biological substances; Z88.5 Allergy status to narcotic agent; W01.0XXA Fall on same level from slipping, tripping and stumbling without subsequent striking against object, initial encounter; Y92.009 Unspecified place in unspecified non-institutional (private) residence as the place of occurrence of the external cause
CPT/HCPCS: 29125; 73110; 96372; 99283; A9270; J1171